=== PATIENT | male | born 1995 | race Caucasian/White ===

== ENCOUNTER 2022-05-04 15:55 | Emergency (ER) | payer OTHER, SELFPAY ==
[2022-05-04 15:58] VITALS: BP 143/84; PULSE 67; RESP 18; TEMP 37.2; O2SAT 98
--- NOTE | 2022-05-04 16:45 | DI.RAD_ITS ---
Exam(s) XR HAND RT COMPLETE EXAM: XR HAND RT COMPLETE CLINICAL HISTORY: lac 3-5. TECHNIQUE: 2D digital imaging was performed of the right hand. Three images were obtained. AP, late ral and oblique views were obtained. COMPARISON: No exams were available for comparison FINDINGS: BONES: There are acute fractures involving the lateral aspect of the head of the middle phalanx of th e middle finger. There also appears to be a nondisplaced fracture involving the lateral aspect of th e base of the distal phalanx of the middle finger. There is a comminuted fracture involving the base of the distal phalanx of the 4th finger. No bony destructive lesion is seen. JOINTS: There is medial subluxation of the DIP joints of both the 3rd and 4th fingers. SOFT TISSUE: There is soft tissue swelling of the 3rd and 4th fingers. Soft tissue lacerations are s een at the lateral aspects of the distal 3rd and 4th fingers. IMPRESSION: 1. Fractures involving the head of the middle phalanx of the 3rd finger and the bases of the distal p halanx of the 3rd and 4th fingers. 2. Medial subluxation of the DIP joints of the 3rd and 4th fingers. 3. Soft tissue swelling of the distal 3rd and 4th fingers with lacerations involving the lateral aspe cts of the 3rd and 4th fingers. 4. Density seen in the soft tissues around the DIP joints which likely reflect bony fracture fragment s but foreign bodies cannot be excluded. DATA REPOSITORY: RADIATION DOSE DELIVERED:
[2022-05-04 17:15] LABS: Abs Immature Grans 0.06 10^3/uL (0.0-0.06); Absolute Eosinophil Count 0.26 10^3/uL (0.0-0.7); Absolute Monocyte Count 0.62 10^3/uL (0.1-0.8); Absolute Neutrophil Count 13.76 10^3/uL (1.2-6.7); Basophils % 0.2; Eosinophils % 1.6; HCT 44.4 % (40.0-50.0); HGB 14.8 g/dL (13.5-17.5); Immature Grans % 0.4; Lymphocytes % 10.2; MCH 28.7 pg (27.0-33.0); MCHC 33.3 % (32.0-36.0); MCV 86 fL (80-95); Monocytes % 3.8; Neutrophils % 83.8; Platelet Count 331 10^3/uL (130-400); RBC 5.15 10^6/uL (4.36-5.78); RDW 14.1 % (11.8-14.1); RDW-SD 44.3 fL; WBC 16.42 10^3/uL (4.4-10.8)
[2022-05-04 17:19] LABS: Absolute Basophil Count 0.03 10^3/uL (0.0-0.2); Absolute Lymphocyte Count 1.67 10^3/uL (1.2-3.4)
[2022-05-04 17:24] LABS: Anion Gap 4.8 mmol/L (3-11); BUN 11 mg/dL (7-18); CO2 29.2 mmol/L (21.0-32.0); CREATININE 1.1 mg/dL (0.70-1.30); Calcium 9.5 mg/dL (8.5-10.1); Chloride 106 mmol/L (98-107); Estimated GFR 95.54 (mL/min/1.73m2); Glucose 102 mg/dL (74-106); Potassium 3.9 mmol/L (3.5-5.1); Sodium 140 mmol/L (136-145)
--- NOTE | 2022-05-04 17:40 | W.ED.GENAD ---
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 Patient unsure of tetanus status. Boostrix was ordered. Patient provided verbal consent for digital block to be performed. Digital block was performed without complication right third, fourth and fifth digits. Patient has significant improvement in pain. Sterile dressing was applied to the digits and hemostasis achieved. X-ray of the right hand was reviewed and interpreted by me: Fracture of the distal mid phalanx and proximal distal phalanx of digits 3 and 4 with dislocations at the DIP. Ancef 1.5 g IV given for open fractures. Screening labs reviewed and leukocytosis noted. 1740 --spoke with on-call orthopedic surgeon, Dr. Torres, discussed ED presentation and course, he recommends transfer to hand specialist. I have called [facility] [place] to request transfer. Awaiting callback. -- Patient was excepted by [facility] [place]. Patient was transferred during EMR downtime. Please see paper documentation regarding transfer. HPI General Mode of arrival: ambulatory. Date/Time Provider Initiated Documentation: 05/04/22 16:11. Limitations to Documentation: no limitations. Information obtained by: patient. HPI Narrative: 27-year-old male presents with laceration to his right hand. Patient notes he accidentally injured his hand with a chop saw. Patient notes complex laceration to his third and fourth digits with bleeding. Patient states diminished sensation distally. 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 Flexor tendons lacerated third and fourth digits at DIP. Nailbed laceration to distal second and fifth digit with partial degloving of fifth digit) Course Vital Signs Vital signs: Vital Signs Temperature 37.2 C 05/04/22 15:58 Pulse 67 05/04/22 15:58 Respiratory Rate 18 05/04/22 15:58 Blood Pressure 143/84 H 05/04/22 15:58 Pulse Oximetry 98 05/04/22 15:58 Temperature 37.2 C 05/04/22 15:58 Temperature Source Oral 05/04/22 15:58 Pulse 67 05/04/22 15:58 Respiratory Rate 18 05/04/22 15:58 Blood Pressure 143/84 H 05/04/22 15:58 Blood Pressure Position Sitting 05/04/22 15:58 Pulse Oximetry 98 05/04/22 15:58 Oxygen Delivery Method Room Air 05/04/22 15:58 Oxygen Flow Rate 0 05/04/22 15:58 Pain Level 5 05/04/22 15:58 Lab/Test Results Lab/Test Results: Laboratory Tests Range/Units 05/04/22 05/04/22 17:08 17:08 WBC (4.4-10.8) 10^3/uL 16.42 H RBC (4.36-5.78) 10^6/uL 5.15 Hgb (13.5-17.5) g/dL 14.8 Hct (40.0-50.0) % 44.4 MCV (80-95) fL 86 MCH (27.0-33.0) pg 28.7 MCHC (32.0-36.0) % 33.3 RDW (11.8-14.1) % 14.1 Plt Count (130-400) 10^3/uL 331 MPV (8.0-11.0) fL 10.0 Immature Gran % 0.4 Neutrophils % 83.8 Lymphocytes % 10.2 Monocytes % 3.8 Eosinophils % 1.6 Basophils % 0.2 Nucleated RBC % (0.0-0.3) % 0.0 Absolute Neutrophils (1.2-6.7) 10^3/uL 13.76 H Absolute Lymphocytes (1.2-3.4) 10^3/uL 1.67 Absolute Monocytes (0.1-0.8) 10^3/uL 0.62 Absolute Eosinophils (0.0-0.7) 10^3/uL 0.26 Absolute Basophils (0.0-0.2) 10^3/uL 0.03 Sodium (136-145) mmol/L 140 Potassium (3.5-5.1) mmol/L 3.9 Chloride (98-107) mmol/L 106 Carbon Dioxide (21.0-32.0) mmol/L 29.2 Anion Gap (3-11) mmol/L 4.8 BUN (7-18) mg/dL 11 Creatinine (0.70-1.30) mg/dL 1.1 Est GFR (CKD-EPI 2020) (mL/min/1.73m2) 95.54 Glucose (74-106) mg/dL 102 Calcium (8.5-10.1) mg/dL 9.5
--- NOTE | 2022-05-04 18:04 | DI.VRAD_ITS ---
PROCEDURE INFORMATION: Exam: XR Right Hand Exam date and time: 05/04/2022 5:23 PM Age: 27 years old Clinical indication: Other: Lac 3-5 TECHNIQUE: Imaging protocol: Radiologic exam of the right hand. Views: 3 or more views. COMPARISON: No relevant prior studies available. FINDINGS: Bones/joints: There is mild ulnar minus variance. There is focal osseous deformity involving the anterolateral aspects of the 3rd and 4th middle phalanges adjacent to the distal interphalangeal joints, suggesting acute osseous injury. There is mild dorsal medial subluxation and medial angulation of the 3rd and 4th distal phalanges at the distal interphalangeal joints. There is also focal osseous deformity of the medial bases of the 3rd and 4th distal phalanges consistent with focal osseous injury. There are numerous tiny punctate densities within the soft tissues in this region suggesting tiny ossified fragments. Osseous mineralization is normal. There are no inflammatory osseous erosive changes. The joint spaces are maintained without degenerative changes. Soft tissues: Findings suggest soft tissue swelling medial to the 5th metacarpal. There is soft tissue swelling, irregularity and foci of lucency at the lateral tips of the 3rd and 4th digits consistent with soft tissue laceration. IMPRESSION: 1. Focal osseous injuries around the 3rd and 4th distal interphalangeal joints, as described above, with some degree of dorsal medial subluxation of the 3rd and 4th distal phalanges at the distal interphalangeal joints. 2. Multiple punctate densities within the soft tissue around the osseous injuries suggesting tiny fracture fragments. Cannot exclude tiny radiopaque foreign bodies on this exam. 3. Soft tissue laceration and swelling involving the tips of the 3rd and 4th digits. Dictated and Authenticated by: Mundo Sheehan MD. Ordering:ZACKARY Cedeño MD
--- NOTE | 2022-05-08 21:05 | NUR.NOTE ---
Accessed [facility] [place] note on 05/08/[address] Davidson Maki.Nursing Note:
== END 2022-05-04 20:31 | disposition short-term general hospital (02) ==
PROVIDERS: Emergency Provider Student in an Organized Health Care Education/Training Program
DX: S68.122A Partial traumatic metacarpophalangeal amputation of right middle finger, initial encounter (principal); W31.2XXA Contact with powered woodworking and forming machines, initial encounter; S68.124A Partial traumatic metacarpophalangeal amputation of right ring finger, initial encounter
CPT/HCPCS: 80048; 90471; 96365; 96375; 99285; 73130; 85025; J0690